=== PATIENT | female | born 1985 | race Caucasian/White ===

== ENCOUNTER 2021-01-10 20:56 | Emergency (ER) | payer OTHER ==
[2021-01-10 21:25] LABS: BASOPHIL 0.1 % (0-2); EOSINOPHIL 0 % (0-5); HCT 46.9 % (37.0-47.0); HGB 15.8 g/dl (12.5-16.0); MCH 30.2 pg (25.0-31.0); MCHC 33.7 g/dL (32.0-36.0); MCV 89.7 fL (78.0-100.0); MONOCYTE 5.9 % (0-12); MPV 10.3 fL (6.0-9.5); NEUTROPHIL 63.6 % (41-80); NRBC 0; PLT 160 K/uL (150-400); RBC 5.23 M/uL (4.20-5.40); RDW 13.6 % (11.5-14.0); WBC 6.9 K/uL (4.0-10.5)
[2021-01-10 21:44] LABS: ALBUMIN 3.7 g/dL (3.4-5.0); BILIRUBIN - TOTAL 0.7 mg/dL (0.2-1.0); BUN/CREAT RATIO (CALC) 10.3 RATIO; CREATININE 0.87 mg/dL (0.51-0.95); GLOBULIN (CALCULATION) 5.1 g/dL; POTASSIUM 4.1 mmol/L (3.5-5.1); TOTAL PROTEIN 8.8 g/dL (6.4-8.2)
[2021-01-10] MEDS ORDERED: AUGMENTIN 875-1 EACH PO (22:21)
[2021-01-10 23:10] LABS: CORONAVIRUS 2019 SARS-COV-2 POSITIVE (NEGATIVE); INFLUENZA A NAA NEGATIVE (NEGATIVE)
== END 2021-01-10 22:47 | disposition home or self-care (01) ==
LOC: FER 20:56
PROVIDERS: Emergency Medicine
DX: U07.1 COVID-19 (principal); J12.82 Pneumonia due to coronavirus disease 2019
CPT/HCPCS: 36415; 71045; 80053; 84484; 85025; 93005; J1885; U0002